=== PATIENT | male | born 1990 | race Caucasian/White ===

== ENCOUNTER 2025-02-03 11:06 | Inpatient (IN) | payer OTHER ==
[~2025-02-03] VITALS: Ht 160 cm; Wt 73.1 kg
[2025-02-03 12:07] LABS: PLATELET COUNT (AUTO) 313 K/uL (150-450); RED BLOOD CELL COUNT(AUTO) 5.88 MIL/uL (4.50-5.90); RED CELL DISTRIBUTION WIDTH 13.5 % (11.5-14.5); WHITE BLOOD COUNT (AUTO) 7.5 K/uL (4.5-11.0)
[2025-02-03 12:10] LABS: CALCIUM, TOTAL 9.3 mg/dL (8.8-10.5); CREATININE 0.80 mg/dL (0.60-1.30); GLOMERULAR FILTR. RATE CALC > 60 mL/min (>60); GLUCOSE,RANDOM 102 mg/dL (70-110); SODIUM SERUM 140 mmol/L (136-145); UREA NITROGEN, BLOOD 11 mg/dL (7-18)
[2025-02-03 15:44] LABS: APPEARANCE,URINE CLEAR (CLEAR); GLUCOSE, URINE (UA) NEGATIVE (NEGATIVE); LEUKOCYTE ESTERASE ,URINE NEGATIVE (NEGATIVE); NITRATE,URINE NEGATIVE (NEGATIVE); OCCULT BLOOD,URINE NEGATIVE (NEGATIVE); SPECIFIC GRAVITIY, URINE 1.006 (1.003-1.030)
[2025-02-03 15:49] LABS: SQUAMOUS EPITHELIAL CELL,UR Few /LPF (None Seen)
[2025-02-04 03:53] VITALS: BP 113/80; PULSE 61; RESP 18; TEMP 98.4; O2SAT 99
[2025-02-04] MEDS ORDERED: SODIUM CHLORIDE 3% 15 ML NEB SOLUTION NEB ONE (03:58)
[2025-02-04 08:08] VITALS: BP 110/78; PULSE 66; RESP 18; TEMP 98.2; O2SAT 99
[2025-02-04 11:22] VITALS: PULSE 96; RESP 14; O2SAT 96
[2025-02-04 12:44] LABS: MTB PCR w/Rif. Resistance-SPUT NOT DETECTED (Not Detectd)
[2025-02-04 12:45] LABS: MTB PCR w/Rif. Resistance-SPUT NOT DETECTED (Not Detectd)
[2025-02-04 15:50] LABS: MTB PCR w/Rif. Resistance-SPUT NOT DETECTED (Not Detectd)
[2025-02-04 19:58] VITALS: BP 117/77; PULSE 85; RESP 20; TEMP 98.2; O2SAT 97
[2025-02-05 04:40] VITALS: BP 116/81; PULSE 96; RESP 18; TEMP 98.4; O2SAT 98
[2025-02-05 07:54] VITALS: BP 111/77; PULSE 80; RESP 20; TEMP 97.9; O2SAT 96
[2025-02-05 19:25] VITALS: BP 116/79; PULSE 85; RESP 18; TEMP 98.2; O2SAT 98
[2025-02-06 04:25] VITALS: BP 112/71; PULSE 81; RESP 18; TEMP 97.9; O2SAT 98
[2025-02-06 07:57] VITALS: BP 106/68; PULSE 86; RESP 18; TEMP 97.9; O2SAT 100
[2025-02-06 15:43] VITALS: BP 130/83; PULSE 74; RESP 18; TEMP 98.2; O2SAT 100
[2025-02-06 21:11] VITALS: BP 116/79; PULSE 84; RESP 18; TEMP 97.9; O2SAT 97
[2025-02-07 06:23] VITALS: BP 102/68; PULSE 82; RESP 18; TEMP 97.9; O2SAT 99
[2025-02-07 10:16] VITALS: BP 119/79; PULSE 85; RESP 19; TEMP 97.7; O2SAT 99
[2025-02-07 15:35] VITALS: BP 123/52; PULSE 77; RESP 19; TEMP 97.9; O2SAT 99
[2025-02-07 20:06] VITALS: BP 117/78; PULSE 89; RESP 20; TEMP 98.6; O2SAT 96
[2025-02-08 04:28] VITALS: BP 105/67; PULSE 78; RESP 18; TEMP 97.9; O2SAT 99
[2025-02-08 08:14] VITALS: BP 111/73; PULSE 84; RESP 18; TEMP 97.9; O2SAT 98
[2025-02-08 09:07] LABS: QUANTIFERON+, Nil Value 0.05 IU/mL; QUANTIFERON+,Mitogen Value >10.00 IU/mL; QUANTIFERON+,TB1 Antigen Value 0.06 IU/mL; QUANTIFERON+,TB2 Antigen Value 0.05 IU/mL; QUANTIFERON, TB GOLD PLUS Negative (Negative)
[2025-02-08 15:38] LABS: COVID AG,FIA SOURCE NASAL SWAB
[2025-02-08 15:40] LABS: INFLUENZA TYPE A NEGATIVE FOR TYPE A (NEGATIVE); INFLUENZA TYPE B NEGATIVE FOR TYPE B (NEGATIVE)
[2025-02-08 15:52] VITALS: BP 127/58; PULSE 92; RESP 18; TEMP 98.2; O2SAT 100
[2025-02-08 16:18] LABS: SARS-COV2 (COVID) ANTIGEN,FIA Negative (Negative)
[2025-02-08 19:32] VITALS: BP 120/89; PULSE 98; RESP 18; TEMP 98.4; O2SAT 99
[2025-02-09 04:54] VITALS: BP 112/86; PULSE 78; RESP 18; TEMP 97.9; O2SAT 100
[2025-02-09 07:43] VITALS: BP 98/71; PULSE 87; RESP 18; TEMP 98.4; O2SAT 97
[2025-02-09 11:33] LABS: PLATELET COUNT (AUTO) 305 K/uL (150-450); RED BLOOD CELL COUNT(AUTO) 5.42 MIL/uL (4.50-5.90); RED CELL DISTRIBUTION WIDTH 12.7 % (11.5-14.5); WHITE BLOOD COUNT (AUTO) 7.3 K/uL (4.5-11.0)
[2025-02-09 11:50] LABS: ASPARTATE AMINOTRANSFERASE 22 U/L (15-37); CALCIUM, TOTAL 8.6 mg/dL (8.8-10.5); CREATININE 0.79 mg/dL (0.60-1.30); GLOMERULAR FILTR. RATE CALC > 60 mL/min (>60); GLUCOSE,RANDOM 96 mg/dL (70-110); SODIUM SERUM 139 mmol/L (136-145); TOTAL PROTEIN, SERUM 7.8 g/dL (6.4-8.2); UREA NITROGEN, BLOOD 8 mg/dL (7-18)
[2025-02-09] MEDS: ISONIAZID 300 MG TABLET PO SCH (14:10)
[2025-02-09] MEDS: PYRAZINAMIDE 500 MG TABLET PO SCH (14:10)
[2025-02-09] MEDS: ETHAMBUTOL HCL 400 MG TABLET PO SCH (14:10)
[2025-02-09] MEDS: PYRIDOXINE HCL 50 MG TABLET PO SCH (14:10)
[2025-02-09 19:55] VITALS: BP 117/77; PULSE 69; RESP 18; TEMP 97.9; O2SAT 98
[2025-02-10 05:22] VITALS: BP 107/66; PULSE 61; RESP 18; TEMP 97.8; O2SAT 96
[2025-02-10 08:44] VITALS: BP 104/77; PULSE 79; RESP 18; TEMP 97.5; O2SAT 99
[2025-02-10 19:45] VITALS: BP 114/71; PULSE 87; RESP 16; TEMP 97.7; O2SAT 97
[2025-02-11 04:25] VITALS: BP 104/65; PULSE 64; RESP 18; TEMP 97.6; O2SAT 98
[2025-02-11 08:00] VITALS: BP 110/78; PULSE 66; RESP 18; TEMP 98.2; O2SAT 98
[2025-02-11 16:30] LABS: ASPARTATE AMINOTRANSFERASE 23.0 U/L (15-37); TOTAL PROTEIN, SERUM 8.2 g/dL (6.4-8.2)
[2025-02-11 19:41] VITALS: BP 112/75; PULSE 78; RESP 18; TEMP 98.2; O2SAT 96
[2025-02-12 04:52] VITALS: BP 117/75; PULSE 71; RESP 18; TEMP 97.9; O2SAT 100
[2025-02-12 08:23] VITALS: BP 113/72; PULSE 65; RESP 18; TEMP 97.8; O2SAT 97
[2025-02-12 19:41] VITALS: BP 118/87; PULSE 76; RESP 18; TEMP 97.9; O2SAT 97
[2025-02-13 05:07] VITALS: BP 112/78; PULSE 67; RESP 18; TEMP 97.7; O2SAT 99
[2025-02-13 07:40] VITALS: BP 113/73; PULSE 69; RESP 18; TEMP 97.9; O2SAT 100
[2025-02-13 13:07] LABS: CALCIUM, TOTAL 8.9 mg/dL (8.8-10.5); CREATININE 0.84 mg/dL (0.60-1.30); GLOMERULAR FILTR. RATE CALC > 60 mL/min (>60); GLUCOSE,RANDOM 89 mg/dL (70-110); SODIUM SERUM 135 mmol/L (136-145); UREA NITROGEN, BLOOD 5 mg/dL (7-18)
[2025-02-13 13:11] LABS: ASPARTATE AMINOTRANSFERASE 20 U/L (15-37); TOTAL PROTEIN, SERUM 8.3 g/dL (6.4-8.2)
[2025-02-13 15:32] VITALS: BP 112/85; PULSE 83; RESP 18; TEMP 97.7; O2SAT 100
[2025-02-13 16:23] LABS: ASPARTATE AMINOTRANSFERASE 21.0 U/L (15-37); TOTAL PROTEIN, SERUM 7.9 g/dL (6.4-8.2)
[2025-02-13 20:09] VITALS: BP 126/77; PULSE 79; RESP 18; TEMP 98.1; O2SAT 99
[2025-02-14 05:00] VITALS: BP 106/70; PULSE 64; RESP 18; TEMP 97.9; O2SAT 98
[2025-02-14 08:00] VITALS: BP 108/71; PULSE 67; RESP 20; TEMP 97.9; O2SAT 100
[2025-02-14 16:00] VITALS: BP 114/87; PULSE 94; RESP 20; TEMP 97.7; O2SAT 98
[2025-02-14 20:12] VITALS: BP 124/80; PULSE 86; RESP 20; TEMP 98.2; O2SAT 97
[2025-02-15 05:30] VITALS: BP 115/72; PULSE 78; RESP 18; TEMP 97.7; O2SAT 98
[2025-02-15 07:57] VITALS: BP 118/82; PULSE 84; RESP 18; TEMP 98; O2SAT 99
[2025-02-15 12:13] LABS: ASPARTATE AMINOTRANSFERASE 24.0 U/L (15-37); TOTAL PROTEIN, SERUM 8.0 g/dL (6.4-8.2)
[2025-02-15] MEDS: ETHAMBUTOL HCL 400 MG TABLET PO SCH (13:08)
[2025-02-15] MEDS: ISONIAZID 300 MG TABLET PO SCH (13:08)
[2025-02-15] MEDS: PYRAZINAMIDE 500 MG TABLET PO SCH (13:08)
[2025-02-15] MEDS: PYRIDOXINE HCL 50 MG TABLET PO SCH (13:08)
[2025-02-16 02:07] LABS: HEPATITIS B CORE IGM Negative (Negative); HEPATITIS C AB (EIA) Non Reactive (Non Reactive)
== END 2025-02-15 16:55 | DRG 192 ==
LOC: EMS 11:18 → EDBEDREQ 11:57 → EDH 12:24 → 4E 02-04 03:45
PROVIDERS: ADMIT Internal Medicine; ATTEND Internal Medicine
DX: J47.9 Bronchiectasis, uncomplicated (principal); Z20.822 Contact with and (suspected) exposure to COVID-19; Z78.9 Other specified health status; Z79.899 Other long term (current) drug therapy
CPT/HCPCS: 71046; 71250; 80048; 80053; 80074; 80076; 81001; 85025; 86480; 87015; 87206; 87389; 87556; 87804; 93005; 94640; 99285; G0378; 36415-L1; 36415-TC